=== PATIENT | female | born 1940 | race Caucasian/White ===

== ENCOUNTER → 2019-08-12 | Outpatient (CLI) | payer MEDICARE, BC ==
--- NOTE | 2019-08-12 11:56 | EST ---
EXERCISE STRESS AGE: 79 SEX: F HT: 5'1" WT: 160 PROTOCOL: Cardiolite Burak Stress Test STAGE: 3 DURATION OF EXERCISE: 7:10 HEART RATE REST: 55 BLOOD PRESSURE REST: 214/89 MAXIMUM HEART RATE ACHIEVED: 124 MAXIMUM BLOOD PRESSURE: 219/78 85% MPHR: 122 100% MPHR: 143 METS: 8.1 INDICATIONS: Asthma CLINICAL INFORMATION: Baseline heart rate 55 beats per minute. Baseline blood pressure 214/89 mmHg. Repeat blood pressure was 188/91 mmHg. Baseline 12-lead ECG shows normal sinus rhythm, normal cardiac intervals. Patient exercised on Burak protocol for 7 minutes 10 seconds achieving a peak heart rate of 124 beats per minute. Hypertensive response to exercise. Peak blood pressure was 219/78 mmHg. There was no ECG evidence for ischemia. Other than occasional PVCs,. no other arrhythmias noted. Nuclear portion of the stress test will be reported separately. MMODL / IJN: [id number] /
--- NOTE | 2019-08-12 12:31 | NM ---
EXAMINATION TYPE: NM stress cardiolite complete DATE OF EXAM: 08/12/2019 COMPARISON: NONE HISTORY: Palpitations and angina TECHNIQUE: After the intravenous administration of 10.9 mCi Tc 99m Sestamibi - Rest images obtained 45 minutes post injection. The patient exercised using a JOLANTA protocol and 1 minute prior to peak exercise was injected with 26.5 mCi Tc 99m Sestamibi - Stress images obtained 30 minutes post injecti on. FINDINGS: Targeted heart rate was achieved during performance of the study. Review of stress and rest SPECT hayley ges demonstrates no reversible perfusion abnormality. There is a large fixed defect in the lateral w all in the distribution of the circumflex coronary artery and small fixed defect in the apical and an terior segments of the anterior wall. Gated analysis shows normal wall motion with an estimated left ventricular ejection fraction of 59 %. TID is calculated at 0.9 cm IMPRESSION: 1. No scintigraphic evidence for reversible ischemia. 2. Fixed defects in the distribution of the circumflex coronary artery and left anterior descending c oronary artery as detailed above indicative of prior infarcts.
== END | disposition home or self-care (01) ==
LOC: RADNMMAIN 07:57
PROVIDERS: ATTEND Family Medicine
DX: I20.9 Angina pectoris, unspecified (principal); R00.2 Palpitations
CPT/HCPCS: 93017; 78452; A9500